=== PATIENT | male | born 1995 ===

== ENCOUNTER 2017-04-29 08:49 | Day surgery (SDC) | payer OTHER ==
[2017-04-24 11:49] VITALS: BMI 18.3
--- NOTE | 2017-04-29 10:43 | HP ---
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/ History Source: Patient Limitations to Obtaining History: No Limitations - Past Medical History Allergies/Adverse Reactions: Allergies Allergy/AdvReac Type Severity Reaction Status Date / Time No Known Allergies Allergy Verified 04/29/17 09:45 [employer]: No: Alzheimer's, CVA, Dementia, Migraine, Multiple Sclerosis, Peripheral Neuropathy, Parkinson's, Seizure, Syncope, TIA, Vertigo, Other Cardiovascular: No: AFIB, Aneurysm, Aortic Insufficiency, Aortic Stenosis, CAD, CHF, Deep Vein Thrombosis, HTN, Hyperlipdemia, IA, Mitral Insufficiency, Mitral Stenosis, Murmur, Pulmonary Hypertension, Other Pulmonary: No: Asthma, Bronchitis, Cancer, COPD, O2 Dependent, Pneumonia, Previously Intubated, Pulmonary Embolus, Pulmonary Fibrosis, Sleep Apnea, Other Hepatobiliary: No: Cirrhosis, Cholelithiasis, Cholecystitis, Choledocholithiasis , Hepatitis A, Hepatitis B, Hepatitis C, Other Renal/: Yes: Other. No: Renal Failure, Renal Inusuff, BPH, Cancer, Hematuria , Hemodialysis, Neurogenic Bladder, Renal Calculi, UTI Heme/Onc: No: Anemia, B12 Deficiency, Bleeding Disorder, Cancer, Current Chemotherapy, Current Radiation Therapy, Hemochromatosis, Hypercoaguable State, Myeloproliferative Synd, Sickle Cell Disease, Sickle Cell Trait, Thrombocytopenia, Other Infectious Disease: Yes: STD's Musculoskeletal: No: Bursitis, Chronic low back pain, Hemiparesis, Hemiplegia, Osteoarthritis, Paraplegia, Other Rheumatology: No: Fibromyalgia, Gout, Lupus, Rheumatoid Arthritis, Sarcoidosis, Vasculitis, Other - Current Medications Current Medications: Home Medications Medication Instructions Recorded NK [No Known Home Medication] 04/29/17 [facility] Physical Exam - Physical Examination Vital Signs: Vital Signs Period Temp Pulse Resp BP Sys/Lynch Pulse Ox Last 24 Hr 98.0 F 56 20 107/66 98 General Appearance: Well Nourished, Well Developed, Alert & Oriented x3 ENT: Clear, No Discharge, No masses Lung: Clear to auscultation Heart: Regular rate & rhythm, Normal S1, Normal S2 Abdomen: Soft, No tenderness, No CVA Pelvic Exam: Other External Genitalia (penile condyloma) Neurological: Intact, Alert, Oriented Satellite Impression/Plan - Impression/Plan Impression: penile condyloma Operative Procedure: CO2 laser fulguration. biopsy Date to be Performed: 04/29/17
[2017-04-29] MEDS ORDERED: IBUPROFEN 800 MG/8 ML IJ IVPB PRN (10:44)
[2017-04-29] MEDS ORDERED: ACETAMINOPHEN 1000 MG/100 ML VIAL (NON FORMULARY) IVPB ONE (10:44)
--- NOTE | 2017-04-29 10:44 | HP ---
History & Physical Update - History History: No Change - Physical Physical: No Change - Assessment Assessment: No Change - Plan Plan: No Change
[2017-04-29] MEDS ORDERED: DEXTROSE 5%-0.45% SALINE 1,000 ML IV SCH (10:45)
[2017-04-29] MEDS ORDERED: MIDAZOLAM HCL 2 MG/2 ML SINGLE DOSE VIAL ONE ×2 (10:47→11:00)
[2017-04-29] MEDS ORDERED: PROPOFOL 20 ML ONE (10:48)
[2017-04-29] MEDS ORDERED: SUCCINYLCHOLINE CHLORIDE 200 MG/10 ML VIAL ONE (10:48)
[2017-04-29] MEDS ORDERED: ceFAZolin SODIUM 1 GM VIAL IVPB ONE (11:08)
[2017-04-29] MEDS ORDERED: ceFAZolin SODIUM 1 GM VIAL ONE (11:11)
[2017-04-29] MEDS ORDERED: ONDANSETRON 4 MG/2 ML VIAL ONE (11:22)
[2017-04-29] MEDS ORDERED: DEXAMETHASONE SOD PHOSPHATE 4 MG/1 ML VIAL ONE (11:22)
[2017-04-29] MEDS ORDERED: BACITRACIN 15 GM TUBE TOPICAL OINTMENT ONE (11:23)
[2017-04-29] MEDS ORDERED: BACITRACIN 15 GM TUBE TOPICAL OINTMENT TP ONE (11:25)
[2017-04-29] MEDS ORDERED: ONDANSETRON 4 MG/2 ML VIAL IVPUSH PRN (11:41)
[2017-04-29] MEDS ORDERED: oxyCODONE HCL 5 MG TABLET PO PRN (11:41)
[2017-04-29] MEDS ORDERED: PROMETHAZINE HCL 25 MG/1 ML VIAL IVPUSH PRN (11:41)
[2017-04-29] MEDS ORDERED: LACTATED RINGERS SOLUTION 1,000 ML IV SCH (11:45)
[2017-04-29 12:43] VITALS: TEMP 97.8
[2017-04-29 16:36] VITALS: BP 110/73; PULSE 53
--- NOTE | 2017-05-01 16:08 | PATH ---
Surgical Pathology Report Patient Name: MELANI RODGERS [facility]. Rec. #: [id number] /Age/Gender: 1995 (Age: 21) / M Account: [id number] Location: [facility] Taken: 04/29/2017 Received: 04/29/2017 Reported: 05/01/2017 Physicians: Vasiliy Gutierrez M.D. 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 NEGATIVE FOR HIGH GRADE DYSPLASIA. Comment: The morphologic findings are compatible with condyloma in proper clinical setting. HPV studies performed and interpreted at the [facility], [place], [place] ([id number]) show the following: HPV High risk (16/18): Negative HPV Low risk (6/11): Negative HPV WSS (6,11,16,18,31,33,51): Negative Electronically Signed Zak Lazo M.D. Gross Description Received in formalin labeled "biopsy penile condyloma" is a 0.3 x 0.2 x 0.1 cm jiang, polypoid portion of skin. The specimen is submitted in toto in one cassette. 04/29/201704/29/2017
--- NOTE | 2017-05-19 13:57 | OP ---
DATE OF OPERATION: 04/29/2017 PREOPERATIVE DIAGNOSIS: Penile condyloma. POSTOPERATIVE DIAGNOSIS: Penile condyloma. PROCEDURE: Laser fulguration of penile condyloma as well as biopsy. SURGEON: Vasiliy Gutierrez MD ESTIMATED BLOOD LOSS: Minimal. ANESTHESIA: Local with sedation. FINDINGS: Penile condyloma at the distal shaft of the penis. PREOPERATIVE INDICATIONS: The patient is a 21-year-old male who has penile condyloma along the subcoronal area of the distal shaft of his penis. He comes to the OR for laser fulguration and biopsy. DESCRIPTION OF OPERATION: Patient was brought to the OR, placed on the table in supine position, given general anesthesia and IV antibiotics, and a ring block was performed with lidocaine. Timeout was performed. CO2 laser was used to fulgurate the majority of the lesions along the distal penile shaft. One area was excised for biopsy and was fulgurated. Wound was dressed. Patient tolerated the procedure and was woken up. VASILIY GUTIERREZ M.D. [id number]
== END 2017-04-29 15:35 | disposition home or self-care (01) ==
LOC: JASU-SURG 08:49
PROVIDERS: ATTEND Urology
PROC: 0V5SXZZ Destruction of Penis, External Approach (ICD-10-PCS; principal; 2017-04-29 10:00)
DX: A63.0 Anogenital (venereal) warts (principal)
CPT/HCPCS: 88305-TC; 94760